=== PATIENT | male | born 1965 | race Caucasian/White ===

== ENCOUNTER 2016-12-31 12:06 | Emergency (ER) | payer SELFPAY ==
[2016-12-31 12:41] LABS: BASOPHIL# 0.4 X 10^3uL (0.0-0.1); BASOPHILS 2.3 % (0.0-2.0); EOSINOPHILS 0.2 % (0.0-6.0); HEMATOCRIT 40.6 % (42.0-54.0); HEMOGLOBIN 14.4 g/dL (14.0-18.0); LYMPHOCYTES 13.1 % (20.0-40.0); MEAN CORPUS. HGB CONCENTRATION 35.4 g/dL (32.0-36.0); MEAN CORPUSCULAR HEMOGLOBIN 32.2 pg (29.0-35.0); MEAN PLATELET VOLUME 8.7 fL (7.4-10.4); MONOCYTES 9.1 % (2.0-10.0); MONOCYTES# 1.4 X 10^3uL (0.2-1.0); NEUTROPHILS 75.3 % (54.0-75.0); NEUTROPHILS# 11.7 X 10^3uL (2.6-6.7); PLATELET COUNT 265 X 10^3uL (130-440); RED BLOOD COUNT 4.46 X 10^6uL (4.20-6.10); RED CELL DISTRIBUTION WIDTH 11.8 % (11.5-14.5); WHITE BLOOD COUNT 15.5 X 10^3uL (3.9-10.7)
[2016-12-31] MEDS ORDERED: PIGGYBACK IV ONE (13:03)
[2016-12-31] MEDS ORDERED: NORMAL SALINE 1,000 ML IV ONE (13:03)
[2016-12-31] MEDS ORDERED: D5W IV ONE (13:03)
[2016-12-31] MEDS ORDERED: CLINDAMYCIN IV ONE (13:03)
[2016-12-31] MEDS ORDERED: KETOROLAC TROMETHAMINE 30 MG/ML VIAL ONE (13:07)
[2016-12-31] MEDS ORDERED: DEXAMETHASONE 10 MG/ML VIAL ONE (13:07)
[2016-12-31] MEDS ORDERED: ONDANSETRON HCL 4 MG/2 ML VIAL ONE (13:07)
[2016-12-31 13:11] LABS: A/G RATIO 1.1; ALBUMIN 4.3 g/dL (3.5-5.0); ALKALINE PHOSPHATASE 85 U/L (38-126); ALT 43 U/L (21-72); AST 28 U/L (17-59); BILIRUBIN, TOTAL 1.7 mg/dL (0.2-1.3); BLOOD UREA NITROGEN 12 mg/dL (9-20); C-REACTIVE PROTEIN > 90.0 mg/L (<10.0); CALCIUM 9.7 mg/dL (8.4-10.2); CHLORIDE 99 mmol/L (98-107); EST GLOMERULAR FILTRATION RATE > 60 mL/min; GLUCOSE 116 mg/dL (70-100); POTASSIUM 2.9 mmol/L (3.5-5.1); SODIUM 139 mmol/L (137-145); TOTAL PROTEIN 8.2 g/dL (6.3-8.2)
--- NOTE | 2016-12-31 13:36 | ER NURSING DOCUMENTATION ---
Nurse's Notes [facility] Name:Forrest Rodrigues Age:51 yrs Sex:Male :1965 Arrival Date:12/31/2016 Time:12:06 Bed2 Private MD: Diagnosis:Peritonsillar Abscess Presentation: 12/31 12:11 Transition of care: patient was not received from another setting of care. Notified ED nf Physician of patient's arrival and CC Dr. Rainey notified. 12:11 Acuity: BERNARD 4 nf 12:11 Method Of Arrival: Private Vehicle nf 12:17 Acuity: BERNARD 2 nf 12:18 Presenting complaint: Patient states: significant left sided throat pain and swelling, nf recently treated for strep throat with PCN injection and then z-pack; traveling from [place]. Triage Assessment: 12:20 General: Appears in no apparent distress, well nourished, well groomed, Behavior is nf pleasant. Pain: Complains of pain in left throat. EENT: Throat is reddened has enlarged tonsils on left able to swallow saliva and speak in complete sentences. Reports difficulty swallowing due to pain. Respiratory: Respiratory effort is even, unlabored, Respiratory pattern is regular. Historical: - Allergies: No known drug Allergies; - Home Meds: 1. Zithromax Oral 2. Tramadol Oral 3. Motrin Oral 4. ducolax - PMHx: positive strep test; - PSHx: None; - Tetanus: Other NA. - Immunization history: Vaccine Information Sheet provided influenza vaccine, Flu Vaccine < 1 year. - Ebola Screening: : No symptoms or risks identified at this time. . - Social history: Smoking status: Patient uses tobacco products, current every day smoker. Patient uses alcohol street drugs. Screenin:20 Infectious Disease Risk None. Abuse screen: Denies threats or abuse. Nutritional nf screening: No deficits noted. Assessment: 12:20 See Triage Assessment done by same RN. EENT: Throat is reddened. Respiratory: Airway nf partially obstructed due to left tonsil swelling Respiratory effort is even, unlabored, Respiratory pattern is regular, Breath sounds are clear bilaterally. Vital Signs: 12:17 BP 151 / 96; Pulse 82; Resp 12; Temp 97.9(O); Pulse Ox 95% on R/A; Weight 102.06 kg; nf Height 6 ft. 2 in. (187.96 cm); Pain 3/10; 13:10 BP 138 / 89; Pulse 78; Resp 16; Pulse Ox 95% on R/A; Pain 3/10; nf 12:17 Body Mass Index 28.89 (102.06 kg, 187.96 cm) nf ED Course: 12:09 Patient arrived in ED. ama 12:11 Reny Salinas, RN is Primary Nurse. nf 12:11 Triage completed. nf 12:19 Forrest Rainey MD is Attending Physician. be 12:20 Arm band placed on Bed in low position Call Light in Reach HOB Elevated Side rails up nf x1. 12:20 Valuables Remains with patient. Door closed. Noise minimized. Lights dimmed. Moved to private room. Verbal reassurance given. Warm blanket given. Pillow given. Diet: Patient is NPO. 13:12 Report given to Braden's nurse at [facility]. nf Administered Medications: 13:08 Drug: Toradol 30 mg; Route: IVP; Site: left antecubital; nf 13:36 Follow up: Response: No adverse reaction nf 13:08 Drug: Zofran 8 mg; Route: IVP; Infused Over: 2 mins; Site: left antecubital; nf 13:36 Follow up: Response: No adverse reaction nf 13:08 Not Given (patient declined): Dilaudid 1 mg IVP every 20 minutes; PRN nf 13:08 Drug: NS 0.9% 1000 ml; Route: IV; Rate: bolus; Site: left antecubital; nf 13:36 Follow up: IV Status: Completed infusion; IV Intake: 1000ml nf 13:09 Drug: Decadron 10 mg IVP - Dexamethasone 30 mg; Route: IVP; Site: left antecubital; nf 13:36 Follow up: Response: No adverse reaction nf 13:09 Drug: Clindamycin 900 mg; Route: IVPB; Site: left antecubital; nf 13:36 Follow up: IV Status: Completed infusion; IV Intake: 50ml nf Intake: 13:36 IV: 1000ml; Total: 1000ml. nf 13:36 IV: 50ml; Total: 1050ml. nf Outcome: 12:48 Discharge ordered by . be 13:36 Patient left the ED. sc1 13:36 Discharged to discharged to follow up with ENT Braden at [facility]; patient nf provided with address and directions and phone number for [facility]; patient disscahrged and transported by to [place] with nurses notes from ER and lab test results 13:36 Condition: stable 13:36 Discharge Assessment: Patient awake, alert and oriented x 3. No cognitive and/or functional deficits noted. Patient verbalized understanding of disposition instructions. 13:36 Discharge instructions given to patient, Instructed on discharge instructions, follow up and referral plans. medication usage, need to go directly to ENT; peripheral IV flushed and wrapped for drive by private vehicle Demonstrated understanding of instructions. Signatures: Gerda Lu RN RN sc1 Reny Salinas RN RN nf Forrest Rainey MD MD be Averdick, Andrew, Reg Reg ama
--- NOTE | 2016-12-31 13:36 | ER PHYSICIAN DOCUMENTATION ---
Physician Documentation [facility] Name:Forrest Rodrigues Age:51 yrs Sex:Male :1965 Arrival Date:12/31/2016 Time:12:06 Bed2 Private MD: Forrest Kemp Disposition: 12/31/16 12:48 Discharged to Other. Impression: Peritonsillar Abscess. - Condition is Good. - Medical Reconciliation form form. - Follow up: Private Physician; When: Today; Reason: Continuance of care. - Problem is new. - Symptoms are unchanged. HPI: 12/31 12:55 This 51 yrs old Male presents to ER via Private Vehicle with complaints of be Sore Throat. 12:55 The patient presents with sore throat. The patient describes throat pain as burning, be constant, suffocating. Modifying factors: The symptoms are alleviated by nothing, the symptoms are aggravated by foods, swallowing. Associated signs and symptoms: Pertinent positives: chills, fever. The patient has been recently seen at an urgent care, yesterday, this week, for similar complaints, was given a prescription for antibiotics, without relief. Historical: - Allergies: No known drug Allergies; - Home Meds: 1. Zithromax Oral 2. Tramadol Oral 3. Motrin Oral 4. ducolax - PMHx: positive strep test; - PSHx: None; - Tetanus: Other NA. - Immunization history: Vaccine Information Sheet provided influenza vaccine, Flu Vaccine < 1 year. - Ebola Screening: : No symptoms or risks identified at this time. . - Social history: Smoking status: Patient uses tobacco products, current every day smoker. Patient uses alcohol street drugs. ROS: 12:56 ENT: Positive for difficulty handling secretions, difficulty swallowing, hoarseness, be sore throat, Negative for drainage from ear(s), sinus congestion. 12:56 All other systems are negative. Exam: 12:57 Constitutional: This is a well developed, well nourished patient who is awake, alert, be and in mild distress. 12:57 ENT: Mouth: abscess, that is marked, of the left buccal mucosa, Posterior pharynx: Airway: patent. 12:57 Neck: ROM/movement: no acute changes, Meningeal signs: are not present. 12:57 Respiratory: Respirations: normal, Breath sounds: are normal. 12:57 Skin: Turgor: is excellent. Vital Signs: 12:17 BP 151 / 96; Pulse 82; Resp 12; Temp 97.9(O); Pulse Ox 95% on R/A; Weight 102.06 kg; nf Height 6 ft. 2 in. (187.96 cm); Pain 3/10; 13:10 BP 138 / 89; Pulse 78; Resp 16; Pulse Ox 95% on R/A; Pain 3/10; nf 12:17 Body Mass Index 28.89 (102.06 kg, 187.96 cm) nf MDM: 12:19 Patient medically screened. be 12:58 Differential diagnosis: apthous stomatitis, epiglottitis, lymphoma, peritonsillar be abscess retropharyngeal abcess. Data reviewed: vital signs, nurses notes, lab test result(s), and as a result, I will administer antibiotics Cleocin, administer IV fluids, NS bolus, administer steroids, Decadron, prescribe pain medication, Toradol. Special discussion: Based on the history and exam findings, there is no indication for further emergent testing or inpatient evaluation. I discussed with the patient/guardian the need to see the ENT specialist for further evaluation of the symptoms. Arrangements made with Dr. Jo Gilman, ENT. Will be seen later today in office for definitive care.. 12/31 12:46 Order name: LACTATE; Complete Time: 13:01 EDMS 12/31 13:01 Interpretation: Normal. be 07 12:47 Order name: CBC AUTO DIF, MDIF/RMOR IF IND; Complete Time: 13:17 EDMS 12/31 13:01 Interpretation: Normal Except: Leukocytosis with left shift and polycythemia. be 12/31 13:11 Order name: COMPREHENSIVE METABOLIC PANEL; Complete Time: 13:17 EDMS 07 13:17 Interpretation: Normal Except: hypokalemia. be 12/31 13:11 Order name: C-REACTIVE PROTEIN; Complete Time: 13:17 EDMS 12/31 13:16 Interpretation: Abnormal. be Dispensed Medications: 13:08 Drug: Toradol 30 mg; Route: IVP; Site: left antecubital; nf 13:36 Follow up: Response: No adverse reaction nf 13:08 Drug: Zofran 8 mg; Route: IVP; Infused Over: 2 mins; Site: left antecubital; nf 13:36 Follow up: Response: No adverse reaction nf 13:08 Not Given (patient declined): Dilaudid 1 mg IVP every 20 minutes; PRN nf 13:08 Drug: NS 0.9% 1000 ml; Route: IV; Rate: bolus; Site: left antecubital; nf 13:36 Follow up: IV Status: Completed infusion; IV Intake: 1000ml nf 13:09 Drug: Decadron 10 mg IVP - Dexamethasone 30 mg; Route: IVP; Site: left antecubital; nf 13:36 Follow up: Response: No adverse reaction nf 13:09 Drug: Clindamycin 900 mg; Route: IVPB; Site: left antecubital; nf 13:36 Follow up: IV Status: Completed infusion; IV Intake: 50ml nf Signatures: Gerda Lu RN RN sc1 Reny Salinas RN RN nf Forrest Rainey MD MD be
== END 2016-12-31 13:36 | disposition other institution (70) ==
LOC: ER 12:06
DX: J36 Peritonsillar abscess (principal); Z79.899 Other long term (current) drug therapy
CPT/HCPCS: 80053; 83605; 85025; 86140; 96365; 96375; 99283; J1100; J1885; J2405; J7030